=== PATIENT | male | born 1985 | race Caucasian/White ===

== ENCOUNTER 2022-02-20 02:38 | Inpatient (IN) | payer MEDICAID ==
[~2022-02-20] VITALS: Ht 167.6 cm; Wt 79.9 kg
[2022-02-20] VITALS (10 sets, daily range): BP systolic 122–181; BP diastolic 75–131
[2022-02-20] MEDS ORDERED: LABETALOL HCL VIAL 20 MG/4 ML VIAL IV ONE ×2 (03:45→05:00)
[2022-02-20] MEDS ORDERED: HYDROCODONE/ACETAMINOPHEN 10/325MG TABLET PO ONE (03:45)
[2022-02-20 04:10] LABS: HEMATOCRIT 33.4 % (42.0-52.0); HEMOGLOBIN 11.1 g/dL (14.0-18.0); MEAN CORPUSCULAR HEMOGLOBIN 30.2 pg (28.0-32.0); MEAN CORPUSCULAR VOLUME 90.5 fL (80.0-94.0); PLATELET 221 x1000/uL (130-400); RED BLOOD CELL COUNT 3.69 mill/uL (4.7-6.1); RED CELL DISTRIBUTION WIDTH 15.6 % (11.6-14.6)
[2022-02-20 04:22] LABS: CHLORIDE 101 mEq/L (98-107)
[2022-02-20] MEDS ORDERED: POTASSIUM CHLORIDE 20MEQ TABLET SR PO NR ×2 (04:30→10:15)
[2022-02-20] MEDS ORDERED: ASPIRIN 325MG EC TABLET PO NR (05:00)
[2022-02-20 07:12] LABS: *AMPHETAMINES SCREEN URINE NEGATIVE (NEGATIVE); *BARBITURATES SCREEN URINE NEGATIVE (NEGATIVE); *BENZODIAZEPINES SCREEN URINE NEGATIVE (NEGATIVE); *COCAINE SCREEN URINE NEGATIVE (NEGATIVE); CANNABINOID URINE SCREEN NEGATIVE (NEGATIVE); METHADONE URINE SCREEN NEGATIVE (NEGATIVE); OPIATES URINE SCREEN NEGATIVE (NEGATIVE); PHENCYCLIDINE URINE SCREEN NEGATIVE (NEGATIVE)
[2022-02-20] MEDS ORDERED: HYDRALAZINE 20MG/ML VIAL IV PRN (08:45)
[2022-02-20] MEDS: HYDRALAZINE HCL 100MG TABLET PO SCH ×3 (09:24→22:14)
[2022-02-20] MEDS: NIFEDIPINE XL 60MG TAB PO SCH ×2 (09:24→20:57)
[2022-02-20] MEDS ORDERED: CLONIDINE 0.2MG TABLET PO PRN (10:15)
[2022-02-20] MEDS ORDERED: DIPHENHYDRAMINE 50MG/ML VIAL IV PRN (10:15)
[2022-02-20] MEDS ORDERED: ONDANSETRON HCL 4MG/2ML INJ IV PRN (10:15)
[2022-02-20] MEDS ORDERED: MAGNESIUM/ALUMINUM HYDROXIDE/SIMETHICONE 30ML UDC PO PRN (10:15)
[2022-02-20] MEDS ORDERED: ZOLPIDEM TARTRATE 5MG TABLET PO PRN (10:15)
[2022-02-20] MEDS ORDERED: ACETAMINOPHEN 325MG TABLET PO PRN ×2 (10:15)
[2022-02-20 12:19] LABS: CREATINE KINASE 151 IU/L (39-308)
[2022-02-20] MEDS: DOXAZOSIN MESYLATE 2MG TABLET PO SCH ×2 (12:36→17:04)
[2022-02-20] MEDS: SODIUM CHLORIDE 0.9% INJ 3ML FLUSH IVF SCH ×2 (14:00→20:57)
[2022-02-20 17:00] LABS: CLARITY URINE CLEAR (CLEAR); COLOR URINE YELLOW (YELLOW); KETONES URINE NEGATIVE (NEGATIVE); LEUKOCYTE ESTERASE URINE NEGATIVE (NEGATIVE); NITRITE URINE NEGATIVE (NEGATIVE); OCCULT BLOOD URINE NEGATIVE (NEGATIVE); PROTEIN URINE 1+ (NEGATIVE); SPECIFIC GRAVITY URINE 1.009 (1.005-1.030); UROBILINOGEN URINE 0.2 E.U./dL (0.2-1.0)
[2022-02-20] MEDS ORDERED: METOPROLOL TARTRATE 100MG TABLET PO SCH (21:00)
[2022-02-21] VITALS (12 sets, daily range): BP systolic 98–137; BP diastolic 52–78
[2022-02-21] MEDS: HYDRALAZINE HCL 100MG TABLET PO SCH (05:15)
[2022-02-21] MEDS: SODIUM CHLORIDE 0.9% INJ 3ML FLUSH IVF SCH ×3 (05:41→21:15)
[2022-02-21 08:50] LABS: BASOPHILS % 0.4 % (0.0-2.0); EOSINOPHILS % 0.5 % (0.0-5.0); HEMATOCRIT. 23.3 % (42.0-52.0); LYMPHOCYTES % 9.4 % (20.0-50.0); MEAN CORPUSCULAR HEMOGLOBIN 30.5 pg (28.0-32.0); MEAN CORPUSCULAR VOLUME 88.5 fL (80.0-94.0); MEAN PLATELET VOLUME 7.8 fl (7.4-10.4); MONOCYTES % 5.2 % (2.0-8.0); NEUTROPHILS % 84.5 % (40.0-76.0); PLATELET 241 x1000/uL (130-400); RED BLOOD CELL COUNT 2.63 mill/uL (4.7-6.1); RED CELL DISTRIBUTION WIDTH 15.7 % (11.6-14.6)
[2022-02-21] MEDS ORDERED: PNEUMOCOCCAL 23-VAL P-SAC VAC 0.5 ML IM ONE (09:00)
[2022-02-21] MEDS ORDERED: INFLUENZA VACCINE 05/PF 0.5 ML SYRINGE IM ONE (09:00)
[2022-02-21] MEDS: NIFEDIPINE XL 30MG TAB PO SCH ×2 (10:07→20:39)
[2022-02-21] MEDS: METOPROLOL TARTRATE 50MG TABLET PO SCH ×2 (10:08→20:39)
[2022-02-21 13:32] LABS: PHOSPHORUS 4.5 mg/dL (2.5-4.9)
[2022-02-21] MEDS: HYDRALAZINE HCL 50MG TABLET PO SCH ×2 (13:57→21:18)
[2022-02-21] MEDS ORDERED: POTASSIUM CHLORIDE 20MEQ TABLET SR PO NR (14:45)
[2022-02-22] VITALS (8 sets, daily range): BP systolic 120–151; BP diastolic 69–95
[2022-02-22] MEDS: HYDRALAZINE HCL 50MG TABLET PO SCH ×3 (05:18→21:11)
[2022-02-22] MEDS: SODIUM CHLORIDE 0.9% INJ 3ML FLUSH IVF SCH ×3 (05:18→22:53)
[2022-02-22 08:08] LABS: ANTI-NUCLEAR ANTIBODIES DIRECT Negative (Negative)
[2022-02-22] MEDS: METOPROLOL TARTRATE 50MG TABLET PO SCH ×2 (08:47→20:31)
[2022-02-22] MEDS: NIFEDIPINE XL 30MG TAB PO SCH ×2 (08:48→20:30)
[2022-02-22 12:10] LABS: HEMOGLOBIN. 7.1 g/dL (14.0-18.0); MEAN CORPUSCULAR HEMOGLOBIN 30.4 pg (28.0-32.0); MEAN CORPUSCULAR VOLUME 90.6 fL (80.0-94.0); MEAN PLATELET VOLUME 7.5 fl (7.4-10.4); PLATELET 226 x1000/uL (130-400); RED BLOOD CELL COUNT 2.32 mill/uL (4.7-6.1); RED CELL DISTRIBUTION WIDTH 16.2 % (11.6-14.6)
[2022-02-22 14:41] LABS: PLATELET ESTIMATE NORMAL
[2022-02-22] MEDS: IRON SUCROSE COMPLEX 100 MG/5 ML ML IV SCH (18:43)
[2022-02-22 20:58] LABS: PARTIAL THROMBOPLASTIN TIME 32.9 sec (23.4-31.0)
[2022-02-22 23:23] LABS: HEPATITIS B SURFACE ANTIGEN NEGATIVE
[2022-02-23] VITALS: BP 135/87
[2022-02-23 04:00] VITALS: BP 144/75
[2022-02-23] MEDS: HYDRALAZINE HCL 50MG TABLET PO SCH ×3 (05:31→22:19)
[2022-02-23 08:14] LABS: HEMATOCRIT. 23.3 % (42.0-52.0); HEMOGLOBIN. 7.7 g/dL (14.0-18.0); MEAN CORPUSCULAR HEMOGLOBIN 29.4 pg (28.0-32.0); MEAN CORPUSCULAR VOLUME 88.6 fL (80.0-94.0); MEAN PLATELET VOLUME 7.6 fl (7.4-10.4); PLATELET 230 x1000/uL (130-400); RED BLOOD CELL COUNT 2.63 mill/uL (4.7-6.1); RED CELL DISTRIBUTION WIDTH 16.2 % (11.6-14.6)
[2022-02-23] MEDS ORDERED: POTASSIUM CHLORIDE 20MEQ TABLET SR PO NR (08:45)
[2022-02-23] MEDS: METOPROLOL TARTRATE 50MG TABLET PO SCH ×2 (09:30→22:18)
[2022-02-23] MEDS: NIFEDIPINE XL 30MG TAB PO SCH ×2 (09:31→22:19)
[2022-02-23 12:00] VITALS: BP 163/80
[2022-02-23 16:00] VITALS: BP 151/91
[2022-02-23 17:35] LABS: PLATELET ESTIMATE NORMAL
[2022-02-23] MEDS: IRON SUCROSE COMPLEX 100 MG/5 ML ML IV SCH ×2 (18:39→19:00)
[2022-02-23] MEDS: SODIUM CHLORIDE 0.9% INJ 3ML FLUSH IVF SCH ×3 (19:02→22:00)
[2022-02-23 20:00] VITALS: BP 157/96
[2022-02-24] VITALS: BP 159/97
[2022-02-24 04:00] VITALS: BP 155/92
[2022-02-24] MEDS: HYDRALAZINE HCL 50MG TABLET PO SCH ×2 (05:51→23:17)
[2022-02-24] MEDS: SODIUM CHLORIDE 0.9% INJ 3ML FLUSH IVF SCH ×3 (05:52→22:07)
[2022-02-24 07:01] LABS: HEMATOCRIT 21.7 % (42.0-52.0); HEMOGLOBIN 7.3 g/dL (14.0-18.0); MEAN CORPUSCULAR HEMOGLOBIN 29.8 pg (28.0-32.0); MEAN CORPUSCULAR VOLUME 88.8 fL (80.0-94.0); PLATELET 253 x1000/uL (130-400); RED BLOOD CELL COUNT 2.44 mill/uL (4.7-6.1)
[2022-02-24 08:00] VITALS: BP 166/85
[2022-02-24] MEDS: NIFEDIPINE XL 30MG TAB PO SCH (10:25)
[2022-02-24] MEDS: METOPROLOL TARTRATE 50MG TABLET PO SCH ×2 (10:26→22:06)
[2022-02-24 12:00] VITALS: BP 137/58
[2022-02-24 16:00] VITALS: BP 156/69
[2022-02-24 20:50] VITALS: BP 155/96
[2022-02-24] MEDS: NIFEDIPINE XL 60MG TAB PO SCH (22:07)
[2022-02-25] VITALS: BP 153/97
[2022-02-25 04:00] VITALS: BP 131/86
[2022-02-25 07:17] LABS: HEMATOCRIT 22.5 % (42.0-52.0); HEMOGLOBIN 7.5 g/dL (14.0-18.0); MEAN CORPUSCULAR HEMOGLOBIN 29.8 pg (28.0-32.0); MEAN CORPUSCULAR VOLUME 89.2 fL (80.0-94.0); PLATELET 273 x1000/uL (130-400); RED BLOOD CELL COUNT 2.52 mill/uL (4.7-6.1); RED CELL DISTRIBUTION WIDTH 15.8 % (11.6-14.6)
[2022-02-25 08:00] VITALS: BP 137/83
[2022-02-25] MEDS: NIFEDIPINE XL 60MG TAB PO SCH ×2 (09:34→21:16)
[2022-02-25] MEDS: METOPROLOL TARTRATE 50MG TABLET PO SCH ×2 (09:35→21:16)
[2022-02-25] MEDS: HYDRALAZINE HCL 50MG TABLET PO SCH ×3 (09:35→22:13)
[2022-02-25] MEDS: SODIUM CHLORIDE 0.9% INJ 3ML FLUSH IVF SCH ×3 (09:35→21:16)
[2022-02-25 12:00] VITALS: BP 135/77
[2022-02-25 16:00] VITALS: BP 127/82
[2022-02-25 20:00] VITALS: BP 134/77
[2022-02-26] VITALS: BP 118/70
[2022-02-26 04:00] VITALS: BP 131/74
[2022-02-26 04:09] LABS: HIV SCREEN 4G Non Reactive (Non Reactive)
[2022-02-26] MEDS: SODIUM CHLORIDE 0.9% INJ 3ML FLUSH IVF SCH (06:09)
[2022-02-26] MEDS: HYDRALAZINE HCL 50MG TABLET PO SCH (06:11)
[2022-02-26 07:40] LABS: BASOPHILS % 0.4 % (0.0-2.0); EOSINOPHILS % 1.1 % (0.0-5.0); HEMATOCRIT. 22.7 % (42.0-52.0); HEMOGLOBIN. 7.7 g/dL (14.0-18.0); LYMPHOCYTES % 10.4 % (20.0-50.0); MEAN CORPUSCULAR HEMOGLOBIN 30.1 pg (28.0-32.0); MEAN CORPUSCULAR VOLUME 89.3 fL (80.0-94.0); MEAN PLATELET VOLUME 7.4 fl (7.4-10.4); MONOCYTES % 5.9 % (2.0-8.0); NEUTROPHILS % 82.2 % (40.0-76.0); PLATELET 312 x1000/uL (130-400); RED BLOOD CELL COUNT 2.54 mill/uL (4.7-6.1); RED CELL DISTRIBUTION WIDTH 15.7 % (11.6-14.6)
[2022-02-26 08:00] VITALS: BP 132/72
[2022-02-26] MEDS: METOPROLOL TARTRATE 50MG TABLET PO SCH (08:55)
[2022-02-26] MEDS: NIFEDIPINE XL 60MG TAB PO SCH (08:56)
[2022-02-26 12:00] VITALS: BP 120/86
[2022-02-26 13:08] VITALS: BP 120/86
[2022-02-26] MEDS ORDERED: EPOETIN ALFA 4000UNITS/ML VIAL SUBCUT SCH (21:00)
== END 2022-02-26 14:20 | disposition home health service (06) | DRG 45 ==
LOC: ER 03:18 → 5EST 05:40 → ENRESERV 06:35 → 5EST 09:42 → 3WST 02-22 13:05
PROVIDERS: ADMIT Internal Medicine; ATTEND Internal Medicine
PROC: 2Y41X5Z Packing of Nasal Region using Packing Material (ICD-10-PCS; principal; 2022-02-20)
PROC: 30233N1 Transfusion of Nonautologous Red Blood Cells into Peripheral Vein, Percutaneous Approach (ICD-10-PCS; 2022-02-22)
PROC: 4A00X4Z Measurement of Central Nervous Electrical Activity, External Approach (ICD-10-PCS; 2022-02-25)
DX: I63.81 Other cerebral infarction due to occlusion or stenosis of small artery (principal); N17.9 Acute kidney failure, unspecified; I31.39 Other pericardial effusion (noninflammatory); D63.1 Anemia in chronic kidney disease; I16.0 Hypertensive urgency; I12.9 Hypertensive chronic kidney disease with stage 1 through stage 4 chronic kidney disease, or unspecified chronic kidney disease; Z20.822 Contact with and (suspected) exposure to COVID-19; N18.9 Chronic kidney disease, unspecified; R04.0 Epistaxis; E87.6 Hypokalemia; Z79.899 Other long term (current) drug therapy; Z86.73 Personal history of transient ischemic attack (TIA), and cerebral infarction without residual deficits
CPT/HCPCS: 36415; 70551; 76770; 80048; 80053; 80061; 80305; 80320; 81003; 82550; 82962; 83735; 84100; 84484; 85025; 85027; 86038; 86160; 86705; 86709; 86803; 86850; 86900; 86920; 87340; 87389; 87426; 93005; 93306; 93880; 95816; 97116; 97162; 99285; J0360; J3490; P9016; G0480